=== PATIENT | female | born 1985 | race Two or more races ===

== ENCOUNTER → 2018-06-04 | Emergency (ER) | payer MEDICAID ==
[~2018-06-04] VITALS: Ht 167.6 cm; Wt 81.6 kg
--- NOTE | 2018-06-04 19:45 | NUR ---
PT BIBSELF C/O MIDSTERNAL CHEST PAIN, NUMBESS ON LEFT LEG SINCE THIS MORNING.
--- NOTE | 2018-06-04 21:12 | NUR ---
Patient discharged to home in stable condition. Written and verbal after care instructions given. Patient verbalizes understanding of instruction.
[2018-06-04 21:13] VITALS: BP 118/74
== END | disposition home or self-care (01) ==
LOC: ER 18:57
DX: S16.1XXA Strain of muscle, fascia and tendon at neck level, initial encounter (principal); S29.011A Strain of muscle and tendon of front wall of thorax, initial encounter; F41.9 Anxiety disorder, unspecified; F10.10 Alcohol abuse, uncomplicated; Y90.9 Presence of alcohol in blood, level not specified; F17.200 Nicotine dependence, unspecified, uncomplicated; V43.52XA Car driver injured in collision with other type car in traffic accident, initial encounter; Y93.89 Activity, other specified; Y92.410 Unspecified street and highway as the place of occurrence of the external cause; Y99.8 Other external cause status
CPT/HCPCS: 99283; A4606; Z7610